=== PATIENT | male | born 1975 | race Caucasian/White ===

== ENCOUNTER 2025-09-12 11:30 | Emergency (ER) | payer SELFPAY ==
[~2025-09-12] VITALS: Ht 170.2 cm; Wt 86.4 kg
[2025-09-12 11:42] VITALS: BP 156/91; PULSE 81; RESP 16; TEMP 98.1; O2SAT 99
[2025-09-12 11:56] LABS: APPEARANCE,URINE CLEAR (CLEAR); GLUCOSE, URINE (UA) NEGATIVE (NEGATIVE); LEUKOCYTE ESTERASE ,URINE NEGATIVE (NEGATIVE); NITRATE,URINE NEGATIVE (NEGATIVE); OCCULT BLOOD,URINE SMALL (NEGATIVE); SPECIFIC GRAVITIY, URINE 1.009 (1.003-1.030)
[2025-09-12 12:03] LABS: SQUAMOUS EPITHELIAL CELL,UR Rare /LPF (None Seen)
[2025-09-12] MEDS: LIDOCAINE 5% TRANSDERMAL PATCH TD ONE (12:13)
[2025-09-12] MEDS: KETOROLAC TROMETHAMINE 60 MG/2 ML VIAL IM ONE (12:13)
[2025-09-12] MEDS ORDERED: LIDO-57 TP (12:58)
[2025-09-12] MEDS ORDERED: METH-659 PO (12:58)
[2025-09-12] MEDS ORDERED: IBUP-1492 PO (12:58)
== END 2025-09-12 13:14 | disposition home or self-care (01) ==
LOC: EMS 11:30
DX: S39.012A Strain of muscle, fascia and tendon of lower back, initial encounter (principal); Z87.891 Personal history of nicotine dependence; X58.XXXA Exposure to other specified factors, initial encounter; Y93.89 Activity, other specified; Y92.89 Other specified places as the place of occurrence of the external cause; Y99.8 Other external cause status
CPT/HCPCS: 99283; 81001; 96372; J1885